=== PATIENT | female | born 1980 | race Caucasian/White ===

== ENCOUNTER → 2018-09-26 | Outpatient (CLI) | payer OTHER ==
--- NOTE | 2018-09-26 16:54 | Diagnostic Imaging Report ---
INDICATION: Bilateral breast pain. COMPARISON: No prior studies are available for comparison. TECHNIQUE: 2D and 3D bilateral diagnostic mammography was performed with CAD. FINDINGS: Scattered fibroglandular densities are identified bilaterally. There are benign calcifications in both breasts. No mass or malignant appearing microcalcifications are seen. The axillae are unremarkable. IMPRESSION: No mammographic features suspicious for malignancy are identified. Even so, directed sonographic interrogation of the areas of pain in both breasts is recommended and will be performed today. ACR BI-RADS Category 0: Incomplete. (Needs additional imaging evaluation). Result letter will be mailed to the patient. Note: At least 10% of breast cancer is not imaged by mammography. Dictated by: Dictated on workstation # [id number]
--- NOTE | 2018-09-26 16:55 | Diagnostic Imaging Report ---
INDICATION: Bilateral breast pain. COMPARISON: Correlation is made with the diagnostic mammogram performed earlier this same day. FINDINGS: The patient complains of pain in the lateral aspect of the left breast and the medial aspect of the right breast. Sonographic interrogation of these regions was performed. No sonographic abnormality is identified. No solid or cystic mass is detected. IMPRESSION: No sonographic abnormality is detected. ACR BI-RADS Category 1: Negative. Dictated by: Dictated on workstation # [id number]
== END ==
LOC: RAD 13:52
PROVIDERS: ATTEND Nurse Practitioner Primary Care
DX: N60.19 Diffuse cystic mastopathy of unspecified breast (principal); N64.4 Mastodynia
CPT/HCPCS: 76642; 77066